=== PATIENT | female | born 1980 | race Caucasian/White ===

== ENCOUNTER → 2016-12-11 | Outpatient (REF) | payer BC, OTHER ==
[~2016-12-11] MED LIST: ACET-654 PO; ADVA230A INH; ALBU17IN INH; ALBU83IN INH; AMOX875T2 PO; AZIT250T3 PO; BUDE0.5S6 INH; FIOR1CAP PO; IBUPOTC PO; IPRA1SOL47 INH; IPRASOL4 INH; MONT10TA2 PO; MOTR200T44 PO; OMEP40CA2 PO; PRED10TA PO; PRED5TA PO; THEO30TASA PO; XOLA150S SC
[2016-12-11 03:05] LABS: BASO # 0.1 K/mm3 (0.0-0.2); BASO % 0.4 % (0.0-1.0); EOS # 0.7 K/mm3 (0.0-0.50); EOS % 4.3 % (0.0-3.0); LARGE UNSTAINED CELL # 0.2 K/mm3 (0.0-0.4); LARGE UNSTAINED CELL % 1.2 % (0.0-4.0); LYMPH # 3.4 K/mm3 (1.5-4.5); LYMPH % 20.2 % (24.0-44.0); MEAN CORPUSCULAR HEMOGLOBIN 28.7 pg (27.0-33.0); MEAN CORPUSCULAR HGB CONC 33.3 g/dl (32.0-36.5); MONO # 1.1 K/mm3 (0.0-0.8); MONO % 6.7 % (0.0-5.0); NEUTROPHILS # 10.7 K/mm3 (1.8-7.7); NEUTROPHILS % 67.2 % (36.0-66.0); PLATELET COUNT, AUTOMATED 360 k/mm3 (150-450); RED CELL DISTRIBUTION WIDTH 13.4 % (11.5-14.5)
[2016-12-11 08:24] LABS: ANION GAP 12 MEQ/L (8-16); BLOOD UREA NITROGEN 11 MG/DL (7-18); CALCIUM LEVEL 8.8 MG/DL (8.5-10.1); CARBON DIOXIDE LEVEL 25 MEQ/L (21-32); CHLORIDE LEVEL 103 MEQ/L (98-107); CREATININE FOR GFR 0.81 MG/DL (0.55-1.02); GLOMERULAR FILTRATION RATE > 60.0 (>60); GLUCOSE, FASTING 112 MG/DL (70-105); POTASSIUM SERUM 3.6 MEQ/L (3.5-5.1); SODIUM LEVEL 140 MEQ/L (136-145); THEOPHYLLINE LEVEL 20.4 UG/ML (10.0-20.0)
--- NOTE | 2016-12-11 08:43 | REP ---
Clinical: Preoperative assessment . Comparison: 10/11/2016 . Technique: PA and lateral. Findings: The mediastinum and cardiac silhouette are normal. The lung wu are clear and without acute consolidation, effusion, or pneumothorax. The skeletal structures are intact and normal. Impression: 1. No acute cardiopulmonary process. Signed by Real Velarde MD 12/11/2016 08:34 A
== END ==
LOC: M LAB 01:39
PROVIDERS: ATTEND Nurse Practitioner Family
DX: Z01.818 Encounter for other preprocedural examination (principal)

== ENCOUNTER → 2016-12-16 | Day surgery (SDC) | payer OTHER ==
[~2016-12-16] VITALS: Ht 165.1 cm; Wt 115.2 kg
[~2016-12-16] MED LIST changes: +ACETAMINOPHEN 325 MG TAB PO PRN; +ACETYLCHOLINE OPHTH SOLN 1% 2ML As Ordered ONE; +BALANCED SALT IRRIGATION SOL 500ML GLASS BOTTLE (FOR OR EYE COMPOUND) IR ONE; +BALANCED SALT IRRIGATION SOLUTION 500ML BAG (FOR OR EYE MACHINE) As Ordered ONE; +CEFUROXIME 1MG/0.1ML INTRACAMERAL INJ As Ordered ONE; +CEFUROXIME 1MG/0.1ML INTRACAMERAL INJ ICAM ONE; +CYCLOPENTOLATE 2% OPHTH SOLN OD ONE; +D5W/0.2% SODIUM CHLORIDE 250 ML IV SCH; +HEALON DUET (HEALON 10MG/ML 0.55ML & HEALON ENDOCOAT 30MG/ML 0.85ML) As Ordered ONE; +HEALON DUET (HEALON 10MG/ML 0.55ML & HEALON ENDOCOAT 30MG/ML 0.85ML) XX ONE; +KETOROLAC 0.5% OPHTH SOLN OD ONE; +LIDOCAINE 1% SDV 5 ML VIAL As Ordered ONE; +LIDOCAINE 1% SDV 5 ML VIAL XX ONE; +LIDOCAINE 4% INJ 5 ML AMP OU ONE; +MIDAZOLAM INJ 2 MG/2 ML VIAL (J2250) As Ordered ONE; +OFLOXACIN 0.3 % (OCUFLOX) OPTH SOL 5ML OD ONE; +PHENYLEPHRINE 2.5% OPHTH SOL 2ML OD ONE; +POVIDONE-IODINE 5% OPHTH PREP SOL 30ML As Ordered ONE; +PROPARACAINE 0.5% OPHTH SOL 15ML OD PRN; +TRIMETHOBENZAMIDE 300 MG CAP PO PRN; +TROPICAMIDE 1% OPHTH SOLN 2 ML OD ONE; +fentaNYL 100 MCG/2 ML INJECTION (J3010) As Ordered ONE
[2016-12-16 11:13] LABS: CONTROL LINE UCG INT CTR LINE PRESENT
[2016-12-16 12:30] VITALS: BP 124/62
--- NOTE | 2016-12-17 05:38 | RO ---
DATE OF PROCEDURE: 12/16/2016 PREPROCEDURE DIAGNOSIS: Age related posterior subscapular cataract, right eye. POSTPROCEDURE DIAGNOSIS: Age related posterior subscapular cataract, right eye. PROCEDURE: Phacoemulsification and posterior chamber intraocular lens implantation, right eye. The lens used was PCB00, 14.5 diopter. SURGEON: Clarisse Ga MD G[employer]ZARD SKIN REMOVER: ANESTHESIA: Topical with sedation. DESCRIPTION OF PROCEDURE: The patient was prepped and draped in the usual fashion. A lid speculum was placed between the lids. The eye was fixated. A stab incision was made to the anterior chamber, and 1% non-preserved lidocaine was instilled. Then, viscoelastic was instilled. The eye was re-fixated. A 2.75 mm sapphire keratome was used to make a clear corneal temporal limbal incision. Capsulorrhexis was begun with a 30-gauge bent needle and then carried out in a circular fashion with capsulorrhexis forceps. The lens was hydrodissected, and then the phacoemulsification unit was used to make a groove in the nucleus in two meridians. The nucleus was then cracked into four quadrants. Each quadrant was removed with the phacoemulsification unit. Any remaining cortex was removed with the irrigation and aspiration (I and A) unit. Capsular bag was refilled with viscoelastic. A posterior chamber intraocular lens was placed in the capsular bag without difficulty. Any remaining viscoelastic was removed with the I and A unit. The wound was hydrated, and Miochol and cefuroxime were instilled into the anterior chamber. The patient tolerated the procedure well and went to the recovery room in stable condition.
== END | disposition home or self-care (01) ==
LOC: M SDC 10:16
PROVIDERS: ATTEND Ophthalmology
DX: H25.041 Posterior subcapsular polar age-related cataract, right eye (principal); J45.909 Unspecified asthma, uncomplicated; K21.9 Gastro-esophageal reflux disease without esophagitis; M54.5 Low back pain; L30.9 Dermatitis, unspecified; R06.83 Snoring; R09.81 Nasal congestion; J30.2 Other seasonal allergic rhinitis; Z88.2 Allergy status to sulfonamides; Z91.09 Other allergy status, other than to drugs and biological substances; Z79.899 Other long term (current) drug therapy; Z79.52 Long term (current) use of systemic steroids; Z87.891 Personal history of nicotine dependence
CPT/HCPCS: 66984; 84703; J2250; J3010

== ENCOUNTER 2017-06-06 07:55 | Emergency (ER) | payer OTHER ==
[~2017-06-06] VITALS: Ht 165.1 cm; Wt 106.2 kg
[~2017-06-06 07:55] MED LIST changes: -ACET-654 PO; +ACET1TAB17 PO; -ACETAMINOPHEN 325 MG TAB PO PRN; -ACETYLCHOLINE OPHTH SOLN 1% 2ML As Ordered ONE; +AZIT-12 PO; -AZIT250T3 PO; -BALANCED SALT IRRIGATION SOL 500ML GLASS BOTTLE (FOR OR EYE COMPOUND) IR ONE; -BALANCED SALT IRRIGATION SOLUTION 500ML BAG (FOR OR EYE MACHINE) As Ordered ONE; -CEFUROXIME 1MG/0.1ML INTRACAMERAL INJ As Ordered ONE; -CEFUROXIME 1MG/0.1ML INTRACAMERAL INJ ICAM ONE; -CYCLOPENTOLATE 2% OPHTH SOLN OD ONE; -D5W/0.2% SODIUM CHLORIDE 250 ML IV SCH; -HEALON DUET (HEALON 10MG/ML 0.55ML & HEALON ENDOCOAT 30MG/ML 0.85ML) As Ordered ONE; -HEALON DUET (HEALON 10MG/ML 0.55ML & HEALON ENDOCOAT 30MG/ML 0.85ML) XX ONE; -KETOROLAC 0.5% OPHTH SOLN OD ONE; -LIDOCAINE 1% SDV 5 ML VIAL As Ordered ONE; -LIDOCAINE 1% SDV 5 ML VIAL XX ONE; -LIDOCAINE 4% INJ 5 ML AMP OU ONE; -MIDAZOLAM INJ 2 MG/2 ML VIAL (J2250) As Ordered ONE; -OFLOXACIN 0.3 % (OCUFLOX) OPTH SOL 5ML OD ONE; -PHENYLEPHRINE 2.5% OPHTH SOL 2ML OD ONE; -POVIDONE-IODINE 5% OPHTH PREP SOL 30ML As Ordered ONE; -PROPARACAINE 0.5% OPHTH SOL 15ML OD PRN; +THEO1TAB4 PO; -THEO30TASA PO; -TRIMETHOBENZAMIDE 300 MG CAP PO PRN; -TROPICAMIDE 1% OPHTH SOLN 2 ML OD ONE; -fentaNYL 100 MCG/2 ML INJECTION (J3010) As Ordered ONE
[2017-06-06] MEDS ORDERED: predniSONE 20 MG TAB PO ONE (08:45)
[2017-06-06] MEDS: IPRATROPIUM 0.5MG/ALBUTEROL 2.5MG INH SOL UD 3ML (DUONEB)(J7620) NEB SCH ×3 (08:57→09:25)
[2017-06-06] MEDS ORDERED: PRED20TA PO (09:59)
[2017-06-06 10:05] VITALS: BP 121/81
== END 2017-06-06 10:06 | disposition home or self-care (01) ==
LOC: M ED 07:55
DX: J45.901 Unspecified asthma with (acute) exacerbation (principal); F17.210 Nicotine dependence, cigarettes, uncomplicated; Z88.1 Allergy status to other antibiotic agents; Z88.2 Allergy status to sulfonamides; Z91.018 Allergy to other foods; Z79.899 Other long term (current) drug therapy

== ENCOUNTER 2017-06-14 13:32 | Inpatient (IN) | payer OTHER ==
[~2017-06-14] VITALS: Ht 165.1 cm; Wt 106.1 kg
[~2017-06-14 13:32] MED LIST changes: +PRED20TA PO
[2017-06-14] MEDS ORDERED: methylPREDNISolone INJ 125 MG/2 ML VIAL (J2930) IV ONE (14:30)
[2017-06-14] MEDS: IPRATROPIUM 0.5MG/ALBUTEROL 2.5MG INH SOL UD 3ML (DUONEB)(J7620) NEB SCH ×3 (14:40→15:12)
[2017-06-14 15:02] LABS: ABG BASE EXCESS 0.6 (-2.0-2.0); ABG HCO3 23.2 MEQ/L (22.0-26.0); ABG PARTIAL PRESSURE CO2 31.4 mmHg (35.0-45.0); ABG PARTIAL PRESSURE O2 70.1 mmHg (75.0-100.0); ABG TOTAL CO2 24.1 MEQ/L (22.0-29.0); ABG pH (ARTERIAL) 7.486 UNITS (7.350-7.450)
[2017-06-14 15:09] LABS: BASO # 0.1 K/mm3 (0.0-0.2); BASO % 0.4 % (0.0-1.0); EOS # 0.2 K/mm3 (0.0-0.50); EOS % 1.1 % (0.0-3.0); LARGE UNSTAINED CELL # 0.1 K/mm3 (0.0-0.4); LARGE UNSTAINED CELL % 0.6 % (0.0-4.0); LYMPH # 2.8 K/mm3 (1.5-4.5); LYMPH % 14.5 % (24.0-44.0); MEAN CORPUSCULAR HEMOGLOBIN 29.5 pg (27.0-33.0); MEAN CORPUSCULAR HGB CONC 33.5 g/dl (32.0-36.5); MEAN CORPUSCULAR VOLUME 88.1 fl (80.0-96.0); MONO # 1.1 K/mm3 (0.0-0.8); MONO % 5.6 % (0.0-5.0); NEUTROPHILS # 14.7 K/mm3 (1.8-7.7); NEUTROPHILS % 77.8 % (36.0-66.0); PLATELET COUNT, AUTOMATED 382 k/mm3 (150-450); RED CELL DISTRIBUTION WIDTH 14.6 % (11.5-14.5); WHITE BLOOD COUNT 18.9 K/mm3 (4.0-10.0)
[2017-06-14 15:34] LABS: CONTROL LINE HCG INT CTR LINE PRESENT
[2017-06-14 15:53] LABS: ALBUMIN 3.3 GM/DL (3.2-5.2); ALBUMIN/GLOBULIN RATIO 0.97 (1.00-1.93); ALKALINE PHOSPHATASE 96 U/L (45-117); ALT/SGPT 22 U/L (12-78); ANION GAP 10 MEQ/L (8-16); AST/SGOT 9 U/L (15-37); BILIRUBIN,DIRECT < 0.1 MG/DL (0.0-0.2); BILIRUBIN,TOTAL 0.3 MG/DL (0.2-1.0); BLOOD UREA NITROGEN 14 MG/DL (7-18); CALCIUM LEVEL 7.8 MG/DL (8.5-10.1); CARBON DIOXIDE LEVEL 26 MEQ/L (21-32); CHLORIDE LEVEL 108 MEQ/L (98-107); CREATININE FOR GFR 0.78 MG/DL (0.55-1.02); GLOMERULAR FILTRATION RATE > 60.0 (>60); GLUCOSE, FASTING 88 MG/DL (70-105); POTASSIUM SERUM 3.7 MEQ/L (3.5-5.1); SODIUM LEVEL 144 MEQ/L (136-145); TOTAL PROTEIN 6.7 GM/DL (6.4-8.2)
[2017-06-14] MEDS ORDERED: ISOVUE-370 76% 100ML VIAL (Q9967) As Ordered ONE (16:07)
--- NOTE | 2017-06-14 17:31 | REP ---
CT pulmonary angiogram: With IV contrast: History: Dyspnea. Comparison noncontrast chest CT study is 08/25/2016. Contrast dose: 75 cc's of Isovue [address] technique: Helical scanning is acquired and overlapping 1.5 mm and contiguous 3 mm axial images are reformatted. In addition, a 3-D work station is deployed to generate thick slab maximum intensity projection images in sagittal and coronal imaging projections. CT pulmonary angiographic findings: There is good opacification of the pulmonary arterial tree. There is no CT evidence of pulmonary embolism. The thoracic aorta enhances homogeneously and is normal in course and caliber. A small sliding-type hiatal hernia is noted. There is an accessory splenule in the left upper quadrant. Clips are noted in the gallbladder fossa. No hilar or mediastinal mass or adenopathy is observed. No pleural or pericardial effusion is seen. Maximal intensity projection images show no evidence of vessel cutoff or filling defect to suggest pulmonary embolus. Lung window settings demonstrate numerous patchy bilateral ground-glass alveolar opacities throughout the lung wu. There is some plate-like atelectasis in the lingula and in the right middle lobe. No pleural or pericardial effusion is seen. No bony destructive lesion is appreciated. Impression: 1. No CT evidence of pulmonary embolus. 2. Fairly extensive bilateral patchy disbursed ground-glass opacities and alveolar infiltrates. This has a broad differential. Opportunistic infection, hypersensitivity pneumonitis, eosinophilic pneumonia, and chronic interstitial disease. Signed by Breezy Huber MD 06/15/2017 09:52 A
[2017-06-14] MEDS ORDERED: ACETAMINOPHEN TAB 650MG DOSE (2X325MG) PO PRN (18:15)
[2017-06-14] MEDS ORDERED: ALBUTEROL SULFATE 2.5 MG/0.5 ML INH NEB SOLN INH PRN (18:15)
[2017-06-14] MEDS ORDERED: ONDANSETRON 4MG/2ML VIAL (J2405) IV PRN (18:15)
[2017-06-14] MEDS ORDERED: TUMS500C PO (18:21)
[2017-06-14] MEDS ORDERED: IBUP1TAB6 PO (18:21)
[2017-06-14] MEDS ORDERED: PRED20TA PO (18:23)
[2017-06-14 19:07] LABS: IMMUNOGLOBULIN G 686 MG/DL (681-1648); IMMUNOGLOBULIN M 60.5 MG/DL (40-230)
--- NOTE | 2017-06-14 19:45 | ECGEPIP ---
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
[2017-06-14 20:07] VITALS: BP 138/74
[2017-06-14] MEDS: ALBUTEROL SULFATE 2.5 MG/0.5 ML INH NEB SOLN INH SCH ×2 (20:33→22:58)
[2017-06-14] MEDS: methylPREDNISolone INJ 125 MG/2 ML VIAL (J2930) IV SCH (20:35)
[2017-06-14] MEDS: AZITHROMYCIN INJ 500 MG, VIAL MATE ADAPTER 1 EACH in D5W 250 ML IV SCH (20:36)
[2017-06-14] MEDS ORDERED: SLF 3 ML SYR IV PRN (20:45)
[2017-06-14] MEDS: NYSTATIN 500,000 U/5 ML SUSP UDC PO SCH (21:56)
[2017-06-14] MEDS: cefTRIAXone SOD 2 GM in D5W MINI-BAG PLUS 50 ML IV SCH (21:56)
[2017-06-14] MEDS: SLF 3 ML SYR IV SCH (21:56)
[2017-06-14 23:59] VITALS: BP 140/75
[2017-06-15] VITALS (7 sets, daily range): BP systolic 113–164; BP diastolic 63–86; O2SAT 96
[2017-06-15] MEDS: ALBUTEROL SULFATE 2.5 MG/0.5 ML INH NEB SOLN INH SCH ×6 (03:26→23:17)
[2017-06-15] MEDS: SLF 3 ML SYR IV SCH ×3 (03:48→20:09)
[2017-06-15] MEDS: methylPREDNISolone INJ 125 MG/2 ML VIAL (J2930) IV SCH ×2 (03:48→09:41)
[2017-06-15 05:35] LABS: MEAN CORPUSCULAR HEMOGLOBIN 29.4 pg (27.0-33.0); MEAN CORPUSCULAR HGB CONC 33.2 g/dl (32.0-36.5); MEAN CORPUSCULAR VOLUME 88.4 fl (80.0-96.0); RED CELL DISTRIBUTION WIDTH 14.2 % (11.5-14.5); WHITE BLOOD COUNT 12.6 K/mm3 (4.0-10.0)
[2017-06-15 05:50] LABS: ANION GAP 9 MEQ/L (8-16); BLOOD UREA NITROGEN 14 MG/DL (7-18); CALCIUM LEVEL 7.8 MG/DL (8.5-10.1); CARBON DIOXIDE LEVEL 24 MEQ/L (21-32); CHLORIDE LEVEL 107 MEQ/L (98-107); CREATININE FOR GFR 0.75 MG/DL (0.55-1.02); GLOMERULAR FILTRATION RATE > 60.0 (>60); GLUCOSE, FASTING 179 MG/DL (70-105); MAGNESIUM LEVEL 2.7 MG/DL (1.8-2.4); POTASSIUM SERUM 4.3 MEQ/L (3.5-5.1); SODIUM LEVEL 140 MEQ/L (136-145)
[2017-06-15] MEDS: ENOXAPARIN 40 MG/0.4 ML SYRINGE (J1650) SC SCH (09:32)
[2017-06-15] MEDS: NYSTATIN 500,000 U/5 ML SUSP UDC PO SCH ×4 (09:41→20:09)
--- NOTE | 2017-06-15 15:53 | HPE ---
DATE OF ADMISSION: 06/14/2017 HISTORY OF PRESENT ILLNESS: Ms. Sanchez is a 36-year-old female presenting to the emergency department (ED) for shortness of breath, coughing, and wheezing that has persisted for 1-1/2 weeks. Previously has never had such an episode. Patient denies recent travel history, sick contacts, and changes in medications. Patient has a history of asthma for which she is on home medication of Pulmicort , Advair, DuoNeb, and Ventolin. Patient states that she came to this ED previously and was diagnosed with bronchitis and was put on a tapered steroid dose, however last Wednesday she was not feeling well and could not breathe and went to [facility], who gave her 1 gram of Rocephin and Solu-Medrol and wanted to admit her, but she left due to having a child at home. She was not feeling better by this morning and normally sees Liliana, a nurse practitioner working with Dr. Gupta in pulmonology, and was told to come into the ED to get evaluated. Associated symptoms along with shortness of breath, coughing and wheezing are mild nausea and mid-chest pain that is constant and worsens with inspiration. Denies other symptoms such as fever, body aches, chills, rhinorrhea. Patient has a long history of smoking a half a pack a day for 15 years and quit 2 years ago. Patient states that she has been tested for obstructive sleep apnea and was negative. Patient is in room with . Patient was administered 125 mg of Solu-Medrol and a DuoNeb treatment in the ED. REVIEW OF SYSTEMS: CONSTITUTIONAL: Denies fever, chills, malaise, night sweats, fatigue, weight changes, lethargy. EYES: Denies pain, vision changes, redness. EARS/NOSE/THROAT (ENT): Denies headache, ear pain, dysphagia, congestion, postnasal drip, sore throat. SKIN: Positive for eczematous rash. Denies easy bleeding, bruising. PULMONARY: Positive for dyspnea, cough, pleuritic chest pain, wheezing. CARDIOVASCULAR: Negative for chest pain, palpitations, orthopnea, edema, lightheadedness. GASTROINTESTINAL (GI): Positive nausea. Negative vomiting, abdominal pain, diarrhea, constipation. HEMATOLOGIC: Denies easy bleeding and bruising, enlarged lymph nodes. ENDOCRINE: Denies polydipsia or polyphagia. MUSCULOSKELETAL (MSK): Denies joint pain, swelling, muscle pain and muscle spasms. NEUROLOGIC: Denies weakness, numbness, incoordination, confusion. MEDICAL HISTORY: 1. Migraines. 2. Bilateral cataracts. 3. Eczema. 4. Asthma. 5. Cholecystitis. 6. Gastroesophageal reflux disease (GERD). HOME MEDICATIONS: - Pulmicort 0.5 mg twice a day nebulizer - Advair 230 twice a day inhaler - DuoNeb every 4 hours as needed - omeprazole 40 mg daily - Motrin as needed for headache - Ventolin HFA - Xolair injection 300 mg every other week FAMILY HISTORY: Diabetes and heart disease on maternal and paternal side. ALLERGIES: SULFA, with reaction of hives and rash. SURGICAL HISTORY: 1. Cholecystectomy. 2. Bilateral cataract removal. SOCIAL HISTORY: Denies illicit substance abuse. 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 Previously smoked half a pack per day since the age of 21, recently quit 2 years ago. Occasional alcohol use. PHYSICAL EXAMINATION: VITAL SIGNS: Temperature 97.2, pulse 102, respiratory rate 20, blood pressure 136/76, pulse oximetry 94% on room air. GENERAL: Alert and oriented times three, cooperative, in no acute distress. EYE EXAM: Pupils equal, round, and reactive to light and accommodation. Extraocular motion intact. Anicteric sclerae. HEAD and ENT: Atraumatic, normocephalic. Mucous membranes moist and pink. Normal pharynx. Tongue midline. No pharyngeal edema. NECK EXAM: Supple. No jugular venous distention (JVD) or thyromegaly or lymphadenopathy. CARDIOVASCULAR: Difficult to assess due to loud lung sounds, however few heart sounds do appear regular rhythm and tachycardic. No audible murmur. RESPIRATORY: Bilateral and diffuse wheezing. Expiratory phase prolonged and longer than inspiratory. Rales bilaterally in lower lobes. ABDOMEN EXAM: Normal bowel sounds. Soft, nontender, nondistended. EXTREMITIES: No clubbing, cyanosis, or edema. +2 dorsalis pedis pulses bilaterally. No tenderness or swelling. SKIN EXAM: Visible eczematous rashes bilaterally on shins. NEUROLOGIC EXAM: Normal speech, normal tone, sensation intact. Cranial nerves III-XII intact. PSYCHIATRIC EXAM: Appropriate mood and affect, oriented times three. LABORATORY DATA: White blood count 18.9, hemoglobin and hematocrit 14.1 and 42.2, respectively, platelets 382. Chemistry panel: Sodium 144, potassium 3.7, chloride 108, CO2 26, BUN 14, creatinine 0.78, calcium 7.8. Blood gas: ABG pH 7.49, pCO2 31.4, pO2 70.1. Microbiology: Blood culture pending. IMAGING: CT angiography upon admission showed no pulmonary embolism (PE) and fairly extensive bilateral patchy dispersed ground glass opacities and alveolar infiltrates with a differential of opportunistic infection, hypersensitivity pneumonitis, eosinophilic pneumonia, and chronic interstitial disease. ASSESSMENT AND PLAN: This is a 36-year-old female presenting for dyspnea, admitted to the medical floor. 1. Acute asthma exacerbation. Continue home medications of Pulmicort, Advair, DuoNeb, and Ventolin. Start Solumedrol. 2. Leukocytosis. White blood count is 18.9, likely a systemic inflammatory reaction from her asthma since patient is afebrile upon presentation with a temperature of 97.2. Attributable to partially-treated symptoms and steroid use. Continue prednisone and start antibiotics. Blood cultures and serology pending. Sputum culture and respiratory panel pending. 3. Respiratory alkalosis with an arterial blood gas (ABG) pH of 7.49 and with a CO2 of 31.4. Due to patient's dyspnea and CO2 retention. Continue to monitor. Pulmonology has been consulted. Appreciate their input. 4. Gastroesophageal reflux disease (GERD). Protonix 40 mg. 5. DVT prophylaxis. Lovenox 40mg. I have both independently examined this patient as well as reviewed the dictated note. I have discussed in detail with the resident the findings and plan of treatment as documented in the residents note. I will continue to follow the patient and offer further guidance to the patients care as necessary during this hospital stay. JASS
[2017-06-15] MEDS: methylPREDNISolone INJ 40 MG/1 ML VIAL (J2920) IV SCH (18:06)
[2017-06-15] MEDS: cefTRIAXone SOD 2 GM in D5W MINI-BAG PLUS 50 ML IV SCH (20:09)
[2017-06-15] MEDS ORDERED: MONTELUKAST 10 MG TAB PO SCH (21:00)
[2017-06-15] MEDS: ADVAIR HFA 230/21MCG INHALER INH SCH (21:11)
[2017-06-15] MEDS: TIOTROPIUM INHALER/CAPSULE (SPIRIVA) INH SCH (21:12)
[2017-06-15] MEDS: BUDESONIDE 0.5 MG/2 ML INHALATION SUSPENSION INH SCH (21:13)
[2017-06-15] MEDS: AZITHROMYCIN INJ 500 MG, VIAL MATE ADAPTER 1 EACH in D5W 250 ML IV SCH (21:32)
--- NOTE | 2017-06-15 22:13 | IPNPDOC ---
Subjective Date Seen The patient was seen on 06/15/17. Subjective Chief Complaint/HPI The patient is a 36-year-old female admitted with a reason for visit of Exacerbation Of Asthma. Pt states she feels better today and herself took off her nasal cannula this morning because she felt well without it. States her breathing is improving and dry cough and wheezing are still present, but also improving. No acute complaints or events overnight. General: Reports: Normal Appetite, Denies: Chills, Malaise Constitutional: Denies: Chills, Fever, Malaise, Night Sweats, Weakness Eyes: Denies: Pain, Vision change ENT: Denies: Head Aches, Dysphagia Pulmonary: Reports: Cough, Denies: Dyspnea, Pleuritic Chest Pain Cardiovascular: Denies: Chest Pain, Palpitations, Orthopnea, Edema, Lt Headedness Gastrointestinal: Denies: Nausea, Vomiting, Abdominal Pain, Diarrhea, Constipation Genitourinary: Denies: Dysuria, Frequency Hematologic: Denies: Bruising, Bleeding Excessively Neurological: Denies: Weakness, Numbness, Confusion Psych: Reports: Mood Normal Objective Physical Examination General Exam: Positive: Alert, Cooperative, No Acute Distress Eye Exam: Positive: Conjunctiva & lids normal, EOMI, Sclera icteric ENT Exam: Positive: Atraumatic, Mucous membr. moist/pink, Pharynx Normal, Tongue Midline Neck Exam: Positive: Supple, Negative: JVD, thyromegaly, Lymphadenopathy Chest Exam: Positive: Wheezing (bilateral wheezing, expiratory>inspiratory phase, increased AP diameter) Heart Exam: Positive: Rate Normal, Regular Rhythm, Negative: Murmurs, Rubs Abdomen Exam: Positive: Normal bowel sounds, Soft, Negative: Tenderness Extremity Exam: Positive: Normal pulses, Negative: Clubbing, Cyanosis, Edema, Tenderness, Swelling Skin Exam: Positive: Rash (eczematous rashes on bilateral shins and left toes) Neuro Exam: Positive: Normal Speech, Strength at 5/5 X4 ext, Normal Tone Psych Exam: Positive: Mental status NL, Mood NL, Oriented x 3 Assessment /Plan Assessment 1. Acute asthma exacerbation. Continue inhaler treatments. Decreased Solumedrol from 60mg to 40mg IV. 2. Leukocytosis. White blood count is normalizing from 18.9 yesterday to 12.3 today. Likely a systemic inflammatory reaction from her asthma since patient is afebrile upon presentation and since admission with a Tmax of 98.6, and continues to be afebrile. Attributable to partially-treated symptoms and steroid use. Continue Solumedrol and antibiotics (Ceftraixone 2g + Azithromycin 500mg). Blood cultures show no growth at 24 hours. Serology pending. Sputum culture and respiratory panel pending. 3. Respiratory alkalosis with an arterial blood gas (ABG) pH of 7.49 and with a CO2 of 31.4. Due to patient's dyspnea and CO2 retention. Continue to monitor. Pulmonology has been consulted. Appreciate their input. 4. Gastroesophageal reflux disease (GERD). Protonix 40 mg. 5. DVT prophylaxis. Lovenox 40mg. My preceptor for this patient encounter was Dr. Booker Wallis. The preceptor was physically present in the building during the encounter and was fully available Plan/VTE VTE Prophylaxis Ordered?: Yes VS, I&O, 24H, Fishbone Vital Signs/I&O Vital Signs Date Time Temp Pulse Resp B/P (MAP) Pulse Ox O2 Delivery O2 Flow Rate FiO2 06/15/17 07:24 96 Nasal Cannula 2.0 06/15/17 04:00 96.4 82 18 113/68 (83) I&O- Last 24 Hours up to 6 AM 06/15/17 06:00 Intake Total 1260 ml Output Total 1200 ml Balance 60 ml Laboratory Data 24H LABS Laboratory Tests 2 06/14/17 14:51: Blood Gas Bicarbonate Standard 25.0, Arterial Blood pH 7.486H, Arterial Blood Partial Pressure CO2 31.4L, Arterial Blood Partial Pressure O2 70.1L, Arterial Blood Total CO2 24.1, Arterial Blood HCO3 23.2, Arterial Blood Base Excess 0.6, Arterial Blood Oxygen Saturation 94.8L 06/14/17 14:56: White Blood Count 18.9H, Red Blood Count 4.79, Hemoglobin 14.1, Hematocrit 42.2 , Mean Corpuscular Volume 88.1, Mean Corpuscular Hemoglobin 29.5, Mean Corpuscular Hemoglobin Concent 33.5, Red Cell Distribution Width 14.6H, Platelet Count 382, Neutrophils (%) (Auto) 77.8H, Lymphocytes (%) (Auto) 14.5L, Monocytes (%) (Auto) 5.6H, Eosinophils (%) (Auto) 1.1, Basophils (%) (Auto) 0.4 , Neutrophils # (Auto) 14.7H, Lymphocytes # (Auto) 2.8, Monocytes # (Auto) 1.1H , Eosinophils # (Auto) 0.2, Basophils # (Auto) 0.1, Large Unclassified Cells % 0.6, Large Unclassified Cells # 0.1, Anion Gap 10, Glomerular Filtration Rate > 60.0, Lactic Acid Level 1.2, Calcium Level 7.8L, Aspartate Amino Transf (AST/ SGOT) 9L, Alanine Aminotransferase (ALT/SGPT) 22, Alkaline Phosphatase 96, Total Bilirubin 0.3, Direct Bilirubin < 0.1, B-Type Natriuretic Peptide 10.4, Total Protein 6.7, Albumin 3.3, Albumin/Globulin Ratio 0.97L, Thyroid Stimulating Hormone (TSH) 0.848, Human Chorionic Gonadotropin, Qual NEGATIVE, Immunoglobulin G (Chem) 686, Immunoglobulin A 198.0, Immunoglobulin M 60.5 06/15/17 05:15: Anion Gap 9, Glomerular Filtration Rate > 60.0, Calcium Level 7.8L, Blood Urea Nitrogen 14, Creatinine 0.75, Sodium Level 140, Potassium Level 4.3, Chloride Level 107, Carbon Dioxide Level 24, Magnesium Level 2.7H CBC/BMP Laboratory Tests 06/14/17 14:56 Red Blood Count 4.79, Mean Corpuscular Volume 88.1, Mean Corpuscular Hemoglobin 29.5, Mean Corpuscular Hemoglobin Concent 33.5, Red Cell Distribution Width 14.6 H, Neutrophils (%) (Auto) 77.8 H, Lymphocytes (%) (Auto) 14.5 L, Monocytes (%) (Auto) 5.6 H, Eosinophils (%) (Auto) 1.1, Basophils (%) (Auto) 0.4, Neutrophils # (Auto) 14.7 H, Lymphocytes # (Auto) 2.8, Monocytes # (Auto) 1.1 H , Eosinophils # (Auto) 0.2, Basophils # (Auto) 0.1 06/15/17 05:15 Red Blood Count 4.56, Mean Corpuscular Volume 88.4, Mean Corpuscular Hemoglobin 29.4, Mean Corpuscular Hemoglobin Concent 33.2, Red Cell Distribution Width 14.2 , Calcium Level 7.8 L Microbiology Microbiology 06/14/17 Blood Culture, Received Pending 06/14/17 Blood Culture, Received Pending GME ATTESTATION GME ATTESTATION My preceptor for this patient encounter was physically present in the building during the encounter and was fully available. As needed, all aspects of the patient interview, examination, medical decision making process, and medical care plan development were reviewed and approved by the preceptor. Preceptor is aware and concurs with the plan as stated in the body of this note and will attest to such by his/her cosignature. JAZMINE MADRID DO Jun 15, 2017 08:24
[2017-06-16] MEDS: ALBUTEROL SULFATE 2.5 MG/0.5 ML INH NEB SOLN INH SCH ×3 (02:56→10:51)
[2017-06-16 05:46] LABS: MEAN CORPUSCULAR HEMOGLOBIN 29.6 pg (27.0-33.0); MEAN CORPUSCULAR HGB CONC 33.3 g/dl (32.0-36.5); MEAN CORPUSCULAR VOLUME 88.9 fl (80.0-96.0); RED CELL DISTRIBUTION WIDTH 14.1 % (11.5-14.5); WHITE BLOOD COUNT 18.2 K/mm3 (4.0-10.0)
[2017-06-16 06:00] VITALS: BP 132/80
[2017-06-16] MEDS: SLF 3 ML SYR IV SCH (06:00)
[2017-06-16 06:04] LABS: ANION GAP 7 MEQ/L (8-16); BLOOD UREA NITROGEN 19 MG/DL (7-18); CALCIUM LEVEL 7.9 MG/DL (8.5-10.1); CARBON DIOXIDE LEVEL 25 MEQ/L (21-32); CHLORIDE LEVEL 109 MEQ/L (98-107); CREATININE FOR GFR 0.75 MG/DL (0.55-1.02); GLOMERULAR FILTRATION RATE > 60.0 (>60); GLUCOSE, FASTING 184 MG/DL (70-105); MAGNESIUM LEVEL 2.7 MG/DL (1.8-2.4); POTASSIUM SERUM 4.3 MEQ/L (3.5-5.1); SODIUM LEVEL 141 MEQ/L (136-145)
[2017-06-16] MEDS: BUDESONIDE 0.5 MG/2 ML INHALATION SUSPENSION INH SCH (08:00)
[2017-06-16] MEDS: ADVAIR HFA 230/21MCG INHALER INH SCH (08:03)
[2017-06-16] MEDS: TIOTROPIUM INHALER/CAPSULE (SPIRIVA) INH SCH (08:06)
[2017-06-16] MEDS: NYSTATIN 500,000 U/5 ML SUSP UDC PO SCH ×2 (10:14→12:40)
[2017-06-16] MEDS: ENOXAPARIN 40 MG/0.4 ML SYRINGE (J1650) SC SCH (10:14)
[2017-06-16] MEDS: methylPREDNISolone INJ 40 MG/1 ML VIAL (J2920) IV SCH ×2 (10:14)
[2017-06-16] MEDS: IBUPROFEN 400 MG TAB PO PRN ×2 (10:27)
--- NOTE | 2017-06-16 11:32 | CR ---
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 Dr. Gupta was consulted because of an abnormal CT scan on 06/14/2017, which showed an extensive bilateral patchy ground glass opacity and alveolar infiltrate. The patient's history of present illness was obtained at bedside. The patient was looking uncomfortable after conversing for a long period of time. 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 The patient stated that when she walked to her car that she took her pulse oximetry and it was at 84% and she was feeling very, very weak. The patient states that she went to the emergency room immediately here at [facility] on 06/06/2017 and she was diagnosed with bronchiolitis and was given a steroid taper of 60 mg to 40 mg to 20 mg for 12 days. The patient stated that she had relief for the first day or the prednisone taper and since then she noticed that she felt progressively worse. The patient states that she returned to the emergency room near her home town on 06/11/2017. At this visit, she was given one dose of Rocephin and one dose of Solu-Medrol 250 mg. The patient states that she returned the next two days on Wednesday and Wednesday for her second and third dose of 100 mg of Solu-Medrol. She stated that after her first dose of 250 mg of Solu-Medrol that she noticed an improvement of her symptoms, but progressively it has gotten worse on Wednesday and Wednesday. She stated that at the same emergency room visit that she had gotten a chest x-ray, which was negative for any acute findings. The patient admitted that her dry cough has progressed to a productive cough since this whole episode has started and it has currently improved since her admission here at [facility]. The patient denies having any chest pain, fevers, chills, nausea, vomiting, diarrhea, weight loss or weight gain, cold or heat intolerance. The patient does admit to having an allergy to cat and having one at home. She does state that she is currently looking for a new home for her cat. The patient states that she previously used to be on steroids, at least two to three times a year in the past. The patient states that she gets her pulmonary followup with Dr. Lester and gets Xolair shots. She admits that her last dose of Xolair was at the end of April. The patient states that she used to also get allergy shots at the age of 10 and was previously on Singulair and theophylline this past year. She stated that Theophylline was stopped because it was giving her "a funny feeling in her stomach," and does not remember why she stopped the Singulair. After reviewing her outpatient notes, the patient used to have an FEV1 of 72% in August 2016, which dropped down to 68% in November 2016. PAST MEDICAL HISTORY: 1. Asthma. 2. Gastroesophageal reflux disease (GERD). 3. Migraines. 4. Hypertension. SURGICAL HISTORY: 1. Cholecystectomy on 08/05/2010. SOCIAL HISTORY: Former smoker, she used to smoke a half of a pack per day for 13 years. She quit two years ago in 2014. She admits to social alcohol use. Denies any drug use. She is currently with one child, who also has asthma and she is currently on Asmanex. She has two dogs and one cat as a pet. FAMILY HISTORY: Mother with rheumatoid arthritis and history of transient ischemic attacks in her 40s. Father with no known medical problems. Parents are healthy. ALLERGIES: SULPHUR and environmental allergies. MEDICATIONS: - albuterol four puffs when necessary - DuoNeb every 4 hours when necessary - Prilosec 40 mg - Pulmicort 0.5 mg per 2 mL - Advair - Motrin as needed - Flonase allergy relief 50 mg once per day - Xolair 300 mg every 2 weeks ROS: Gen: No weight loss, fever, or chills. Heent: no pharyngitis, dysphagia, or epistaxis, no nasal polyps. Card: No angina, orthopnea or PND. No symptoms of claudication. Pulm: as per HPI GI: no nausea currently. no diarrhea or blood in stool : no bruning or pain with urination, no increased frequency or flank pain Endo: No polyuria or polydipsia. No hot or cold intolerance. Neuro: no siezure or headache. no tremor Skin: no rash or juandice Sleep: no excessive daytime fatigue or morning headahes Psych: no depression or suicidal ideation, no anxiety Allergy/immunology: no known immunodeficiency, environmental allergies as mentioned above. VITAL SIGNS: Temperature 96.8, pulse 81 and regular, respiratory rate 20, blood pressure 131/72 (91). Pulse oximetry of 92% on room air. PHYSICAL EXAMINATION: GENERAL: The patient was slightly uncomfortable but in no acute distress. Shortness of breath was was obvious during the exam, which you can appreciate a slight wheeze during conversations. HEENT: sclera clear an anicteric, mmm without lesions, tongue midline, no thrush. oropharynx without erythema or exudate. Neck: supple no tracheal deviation, no mass or thyromegaly Card: the patient's heart was tachycardic but regular rhythm. No murmurs or gallops were appreciated. No jugular venous pressure was noted. The patient had good circulation to all the extremities, fingers and in legs and good perfusion. [place] digits. LUNGS: Bilateral inspiratory and expiratory wheezes were appreciated in the upper and lower lobes, posteriorly and anteriorly. AP diameter was normal. No egophony. No abnormal percussions were appreciated. Abd: soft, NT, ND, normoactive bowel sounds. No hepatosplenomegaly. EXTREMITIES: No cyanosis, clubbing or edema. Skin: Eczema was noted on the left metatarsophalangeal joint. INPATIENT MEDICATIONS: - methylprednisolone 60 mg every 6 hours IV was given one time this morning at 9:41 a.m. The patient has an upcoming dose of 40 mg every 8 hours IV of methylprednisolone coming up. The patient denies taking Lovenox. She is currently on azithromycin 500 mg IV, nystatin 5 mL four times a day by mouth, albuterol 2.5 every 4 hours, and Zofran 4 mg IV. LABORATORIES: From this morning: WBC was 12.6, hemoglobin was 13.4, hematocrit of 40.3, platelets of 399. Sodium of 144, potassium 4.3, chloride of 107, BUN of 14, creatinine of 0.75, and glucose of 179. Immunoglobulin A was 198, immunoglobulin M was 60.5. Blood cultures are still negative the past [address] on 06/14/2017 showed fairly extensive bilateral patchy dispersed ground glass opacity and alveolar infiltrate. ASSESSMENT: 1. Abnormal chest CT, ground glass appearance bilaterally in the lungs. Differential diagnosis: Asthma with air trapping, cryptogenic organizing pneumonitis, viral pneumonia, churg shrug vasculitis, hypersensitivity pneumonitis and lupus. To rule these out, we have done laboratories on anti double stranded DNA antibodies, anti neutrophil cytoplasmic antibodies, antinuclear antibodies, hypersensitivity pneumonitis, immunoglobulin E levels. My ultimate suspicion is that this is asthma with air trapping. 2. Moderate persistent asthma. The patient is to start nebulizer Pulmicort 0.5 mg, Advair inhaled and Spiriva one inhalation daily. The patient is to restart Singulair 10 mg by mouth and also start a long steroid taper. The patient will start with 40 mg for one week, then 30 mg for one week, then 20 mg for one week and 10 mg for one week, followed by 5 mg. The patient will followup as an outpatient with pulmonary to make sure improvement in ground glass appearance or resolution of this with a repeat chest CT. Educated the patient on limited exposure to allergens, such as her cats. My preceptor for this patient encounter was Dr. Gupta. The preceptor was physically present in the room during the encounter and was fully available. As needed, all aspects of the patient interview, examination, medical decision making process, and medical care plan development were reviewed and approved by the preceptor. The preceptor is aware and concurs with the plan as stated in the body of this note and will attest to such by her cosignature. I, Yovany Gupta, performed an independent history and physical.I agrre with the assessment and plan as outlined above. edited: 06/18/2017 0724 moises REGAN
[2017-06-16] MEDS ORDERED: MONT10TA2 PO (12:23)
[2017-06-16] MEDS ORDERED: SPIR1CAP INH (12:23)
[2017-06-16] MEDS ORDERED: PRED10TA2 PO (12:23)
--- NOTE | 2017-06-16 15:18 | DS.PDOC ---
Discharge Summary General Date of Admission Jun 14, 2017 at 18:15 Date of Discharge 06/16/17 Specialist/Consultants Involve: SABRINA ANN Discharge Summary PROCEDURES PERFORMED DURING STAY: None. ADMITTING DIAGNOSES: 1. .Asthma Exacerbation 2. .Abnormal CTA Chest DISCHARGE DIAGNOSES: 1. .Asthma Exacerbation 2. .Abnormal CTA Chest COMPLICATIONS/CHIEF COMPLAINT: Exacerbation Of Asthma. HISTORY OF PRESENT ILLNESS: . 36-year-old female with past medical history of GERD, migraines, hypertension, and moderate persistent asthma presents to the ER with a chief complaint of shortness of breath. The patient was recently seen in the ER on 06/05/17 for shortness of breath and was discharged with a tapering dose of prednisone. However, the patient states that the prednisone taper did not help with her respiratory issues as she felt progressively worse. The patient returned to the ER on 06/13 for further evaluation and management. The patient states that she was having increased wheezing, and a productive cough of white sputum over the previous one plus week that did not resolve with the prescribed prednisone taper. The patient denied any complaints of fevers, chills, nausea, vomiting, chest pain, palpitations, diarrhea, or any other acute complaints. The patient was was admitted to the hospitalist service for further evaluation and management. During hospitalization, a CT angiogram of the chest was obtained which revealed fairly extensive bilateral patchy disburse groundglass opacities and alveolar infiltrates suggestive of a possible broad differential opportunistic infection , hypersensitivity pneumonitis, eosinophilic pneumonia, and chronic interstitial disease. Pulmonary was consulted for further evaluation, and recommended continuing the patient's Pulmicort, Advair, and adding Singulair plus Spiriva to the patient's medical regimen. In addition, the patient was given IV steroids here in the hospital, and her respiratory status subsequently improved over the next 48 hours. The patient will be sent home on a tapering dose of prednisone which includes 50 mg of prednisone for 5 days, 40 mg for 5 days, 30 mg for 5 days, 20 mg for 5 days, 10 mg for 5 days, and then to continue 5 mg daily until she is seen outpatient by pulmonary. In addition, the patient did have laboratory studies done which included an autoimmune disease, hypersensitivity pneumonitis, and IgE level workup. The patient has been advised to follow-up with her outpatient terrazzo worker apprentice and primary care physician with the aforementioned studies. At this time, the patient states that she is feeling much better and is eager to return home. I've advised the patient to continue her medical regimen as prescribed above, and to follow-up with her PCP and terrazzo worker apprentice within one and 2-4 weeks respectively. The patient is advised to return to the ER for any acute emergencies. DISCHARGE MEDICATIONS: Please see below. ALLERGIES: Please see below. PHYSICAL EXAMINATION ON DISCHARGE: VITAL SIGNS: Please see below. GENERAL: Awake, alert, oriented HEENT: Normocephalic, atraumatic NECK: No JVD CARDIOVASCULAR EXAMINATION: Normal rate, normal rhythm RESPIRATORY EXAMINATION: Faint expiratory wheeze noted on expiration, improved ABDOMINAL EXAMINATION: Soft, nontender, nondistended EXTREMITIES: No swelling, no tenderness LABORATORY DATA: Please see below. IMAGING: CT pulmonary angiogram: With IV contrast: History: Dyspnea. Comparison noncontrast chest CT study is 08/25/2016. Contrast dose: 75 cc's of Isovue [address] technique: Helical scanning is acquired and overlapping 1.5 mm and contiguous 3 mm axial images are reformatted. In addition, a 3-D work station is deployed to generate thick slab maximum intensity projection images in sagittal and coronal imaging projections. CT pulmonary angiographic findings: There is good opacification of the pulmonary arterial tree. There is no CT evidence of pulmonary embolism. The thoracic aorta enhances homogeneously and is normal in course and caliber. A small sliding-type hiatal hernia is noted. There is an accessory splenule in the left upper quadrant. Clips are noted in the gallbladder fossa. No hilar or mediastinal mass or adenopathy is observed. No pleural or pericardial effusion is seen. Maximal intensity projection images show no evidence of vessel cutoff or filling defect to suggest pulmonary embolus. Lung window settings demonstrate numerous patchy bilateral ground-glass alveolar opacities throughout the lung wu. There is some plate-like atelectasis in the lingula and in the right middle lobe. No pleural or pericardial effusion is seen. No bony destructive lesion is appreciated. Impression: 1. No CT evidence of pulmonary embolus. 2. Fairly extensive bilateral patchy disbursed ground-glass opacities and alveolar infiltrates. This has a broad differential. Opportunistic infection, hypersensitivity pneumonitis, eosinophilic pneumonia, and chronic interstitial disease. PROGNOSIS: Likely stable ACTIVITY: As tolerated. DIET: . Regular diet DISCHARGE PLAN: DISPOSITION: Home, Self-Care. DISCHARGE INSTRUCTIONS: 1. . Follow-up with primary care physician within one week 2. . Follow-up with outpatient pulmonary within 2-4 weeks 3. . Adhere to medical regimen as prescribed ITEMS TO FOLLOWUP ON ON OUTPATIENT: 1. . Return to the ER for any acute emergencies DISCHARGE CONDITION: Stable. TIME SPENT ON DISCHARGE: Greater than 30 minutes. Vital Signs/I&Os Vital Signs Date Time Temp Pulse Resp B/P (MAP) Pulse Ox O2 Delivery O2 Flow Rate FiO2 06/16/17 10:15 Room Air 06/16/17 06:00 96.2 70 14 132/80 (97) 91 06/15/17 08:00 2.0 I&O- Last 24 Hours up to 6 AM 06/16/17 06:00 Intake Total 360 ml Output Total 500 ml Balance -140 ml Laboratory Data Labs 24H Laboratory Tests 2 06/15/17 17:28: Immunoglobulin E 669.0H 06/16/17 05:29: Anion Gap 7L, Glomerular Filtration Rate > 60.0, Blood Urea Nitrogen 19H, Creatinine 0.75, Sodium Level 141, Potassium Level 4.3, Chloride Level 109H, Carbon Dioxide Level 25, Calcium Level 7.9L, Magnesium Level 2.7H CBC/BMP Laboratory Tests 06/16/17 05:29 Red Blood Count 4.33, Mean Corpuscular Volume 88.9, Mean Corpuscular Hemoglobin 29.6, Mean Corpuscular Hemoglobin Concent 33.3, Red Cell Distribution Width 14.1 , Calcium Level 7.9 L Microbiology Microbiology 06/14/17 Blood Culture - Preliminary, Resulted No growth after 24 hours . All specim... 06/14/17 Blood Culture - Preliminary, Resulted No Growth after 48 hours. All Specime... Discharge Medications Scheduled Budesonide (Budesonide) 0.5 Mg/2 Ml Neb, 0.5 MG INH BID, (Reported) Montelukast Sodium (Montelukast Sodium) 10 Mg Tab, 10 MG PO QHS Omalizumab (Xolair) 150 Mg Bjorn, 300 MG SC ASDIRECTED, (Reported) RECEIVES EVERY OTHER WEEK, LAST HAD END OF APRIL Omeprazole (Omeprazole) 40 Mg Cap, 40 MG PO QHS, (Reported) Prednisone (Prednisone) 10 Mg Tab, 10 MG PO ASDIRECTED Salmeterol/Fluticasone (Advair Hfa 230-21 Mcg/Act) 1 Aer Aer, 2 PUFF INH BID, ( Reported) Tiotropium [place] Monohydrate (Spiriva Handihaler) 18 Mcg Cap, 1 INHALATION INH DAILY Scheduled PRN Albuterol Sulfate (Ventolin Hfa) 200 Puff/8 Gm Aers, 2 PUFF INH Q4H PRN for SHORTNESS OF BREATH, (Reported) Albuterol/Ipratropium (Ipratropium [place]/Albut 0.5-2.5 (3) mg/3Ml) 1 Bjorn Bjorn, 1 BJORN INH Q4H PRN for SHORTNESS OF BREATH, (Reported) Calcium Carbonate (Tums) 500 Mg Chw, 500 MG PO for HEARTBURN, (Reported) Ibuprofen (Ibuprofen) 600 Mg Tab, 600 MG PO Q4H PRN for PAIN, (Reported) Allergies Coded Allergies: Sulfa Antibiotics (Unverified Allergy, Mild, rash, 06/06/17) ENVIROMENTAL (Unverified Allergy, Unknown, 12/16/16) TURKEY (Unverified Allergy, Unknown, 12/16/16) SHANDA LOERA MD Jun 16, 2017 15:18
[2017-06-22 00:06] LABS: AUREOBASIDIUM PULLULANS Negative (Negative); MICROPOLYSPORA FAENI AB Negative (Negative); PIGEON SERUM AB Negative (Negative); THERMOACTINOMYCES SACCHARI Negative (Negative); THERMOACTINOMYCES VULGARIS Negative (Negative)
== END 2017-06-16 14:34 | disposition home or self-care (01) | DRG 202 ==
LOC: M ED 13:32 → M ED INP 18:15 → M PCU 19:55 → M PED 06-15 11:25 → M MSPAV 06-15 11:34
PROVIDERS: ADMIT Internal Medicine; ATTEND Internal Medicine
DX: J45.41 Moderate persistent asthma with (acute) exacerbation (principal); E87.2 Acidosis; K21.9 Gastro-esophageal reflux disease without esophagitis; G43.909 Migraine, unspecified, not intractable, without status migrainosus; Z79.899 Other long term (current) drug therapy; Z88.2 Allergy status to sulfonamides; Z91.018 Allergy to other foods; Z91.048 Other nonmedicinal substance allergy status; Z98.41 Cataract extraction status, right eye; Z98.42 Cataract extraction status, left eye; Z83.3 Family history of diabetes mellitus; Z82.49 Family history of ischemic heart disease and other diseases of the circulatory system; Z90.49 Acquired absence of other specified parts of digestive tract; Z87.891 Personal history of nicotine dependence

== ENCOUNTER → 2020-08-29 | Outpatient (CLI) | payer SELFPAY ==
[~2020-08-29] MED LIST changes: -ACET1TAB17 PO; +ACET1TAB55 PO; +IBUP1TAB6 PO; +IPRA0.00 INH; -IPRA1SOL47 INH; +IPRA3AMP2 INH; -IPRASOL4 INH; -MONT10TA2 PO; +MONT10TA4 PO; -OMEP40CA2 PO; +OMEP40CA97 PO; +PRED-351 PO; -PRED10TA PO; +PRED10TA2 PO; +SPIR1CAP INH; -THEO1TAB4 PO; +THEO300T33 PO; +TUMS500C PO
== END ==
LOC: M LABSMTC 14:16
PROVIDERS: ATTEND Pediatrics
DX: Z20.828 Contact with and (suspected) exposure to other viral communicable diseases (principal)

== ENCOUNTER → 2020-09-11 | Outpatient (CLI) | payer SELFPAY | LOC: M LABSMTC 12:50 | PROVIDERS: ATTEND Pediatrics | DX: Z20.828 Contact with and (suspected) exposure to other viral communicable diseases (principal) ==

== ENCOUNTER → 2020-09-27 | Outpatient (CLI) | payer SELFPAY ==
[~2020-09-27] MED LIST changes: -MONT10TA4 PO; +MONT5TAB2 PO
== END ==
LOC: M LABSMTC 12:20
PROVIDERS: ATTEND Pediatrics
DX: Z20.828 Contact with and (suspected) exposure to other viral communicable diseases (principal)

== ENCOUNTER → 2020-10-31 | Outpatient (CLI) | payer SELFPAY | LOC: M LABSMTC 12:39 | PROVIDERS: ATTEND Pediatrics | DX: Z20.822 Contact with and (suspected) exposure to COVID-19 (principal) ==

== ENCOUNTER → 2020-12-06 | Outpatient (REF) ==
[~2020-12-06] MED LIST changes: +MONT10TA10 PO; -MONT5TAB2 PO
== END ==
LOC: M LABSMTC 11:26
PROVIDERS: ATTEND Pediatrics
DX: Z00.00 Encounter for general adult medical examination without abnormal findings (principal)

== ENCOUNTER 2021-01-06 18:48 | Emergency (ER) | payer OTHER, SELFPAY ==
[~2021-01-06] VITALS: Ht 165.1 cm; Wt 113.2 kg
[2021-01-06] MEDS ORDERED: IPRATROPIUM 0.02% SOLN 0.5MG 2.5ML NEB NEB ONE (19:40)
[2021-01-06 19:59] LABS: BASO # 0.1 10^3/uL (0.0-0.2); BASO % 0.4 % (0.0-1.0); EOS # 0.4 10^3/uL (0.0-0.5); EOS % 2.9 % (0.0-3.0); LYMPH # 2.1 10^3/uL (1.5-5.0); LYMPH % 14.4 % (24.0-44.0); MEAN CORPUSCULAR HEMOGLOBIN 30.3 pg (27.0-33.0); MEAN CORPUSCULAR HGB CONC 33.3 g/dl (32.0-36.5); MEAN CORPUSCULAR VOLUME 90.9 fl (80.0-96.0); MONO # 0.6 10^3/uL (0.0-0.8); MONO % 4.4 % (2.0-8.0); NEUTROPHILS # 11.1 10^3/uL (1.5-8.5); NEUTROPHILS % 77.1 % (36.0-66.0); PLATELET COUNT, AUTOMATED 367 10^3/uL (150-450); RED BLOOD COUNT 4.62 10^6/uL (4.00-5.40); WHITE BLOOD COUNT 14.4 10^3/uL (4.0-10.0)
[2021-01-06 20:02] LABS: INR 0.82; PARTIAL THROMBOPLASTIN TIME 31.2 SECONDS (24.2-38.5); PROTHROMBIN TIME 11.5 SECONDS (12.5-14.3)
[2021-01-06 20:08] LABS: D-DIMER QUANT < 270 ng/ml (<500)
--- NOTE | 2021-01-06 20:21 | REPVR ---
PROCEDURE INFORMATION: Exam: XR Chest Exam date and time: 01/06/2021 8:00 PM Age: 40 years old Clinical indication: Chest pain; Type not specified TECHNIQUE: Imaging protocol: XR of the chest Views: 1 view. COMPARISON: CR Chest, 2 view PA, Lat 12/11/2016 4:08 AM FINDINGS: Lungs: Unremarkable. No consolidation. Pleural spaces: Unremarkable. No pleural effusion. No pneumothorax. Heart/Mediastinum: Unremarkable. No cardiomegaly. Bones/joints: Unremarkable. IMPRESSION: No acute findings. Electronically signed by: Maikel Rizvi On 01/06/2021 20:21:08 PM
[2021-01-06 20:47] LABS: ALBUMIN 3.9 GM/DL (3.2-5.2); ALT/SGPT 26 U/L (12-78); BILIRUBIN,DIRECT < 0.1 MG/DL (0.0-0.2); BILIRUBIN,TOTAL 0.2 MG/DL (0.2-1.0); BLOOD UREA NITROGEN 10 MG/DL (7-18); CALCIUM LEVEL 8.6 MG/DL (8.5-10.1); CARBON DIOXIDE LEVEL 27 MEQ/L (21-32); CHLORIDE LEVEL 108 MEQ/L (98-107); CK-MB VALUE MASS < 1.0 NG/ML (<3.6); CPK CREATINE PHOSPHOKINASE 65 U/L (26-192); CREATININE FOR GFR 0.84 MG/DL (0.55-1.30); FREE T4 0.91 NG/DL (0.76-1.46); GLOMERULAR FILTRATION RATE > 60.0 (>58); GLUCOSE, FASTING 151 MG/DL (70-100); LIPASE 203 U/L (73-393); MB/CK RELATIVE INDEX 1.54 (< OR =4); NT-PRO BNP 37 PG/ML (<125); POTASSIUM SERUM 4.1 MEQ/L (3.5-5.1); SODIUM LEVEL 141 MEQ/L (136-145); TOTAL PROTEIN 6.9 GM/DL (6.4-8.2); TROPONIN I < 0.02 NG/ML (< 0.10)
[2021-01-06] MEDS ORDERED: ASPIRIN 325 MG TAB PO ONE (21:40)
[2021-01-06] MEDS ORDERED: FAMOTIDINE 20 MG TAB PO ONE (21:40)
[2021-01-06 22:50] LABS: CK-MB VALUE MASS < 1.0 NG/ML (<3.6); CPK CREATINE PHOSPHOKINASE 52 U/L (26-192); MB/CK RELATIVE INDEX 1.92 (< OR =4); TROPONIN I < 0.02 NG/ML (< 0.10)
[2021-01-06 23:15] VITALS: BP 120/65
--- NOTE | 2021-01-07 08:00 | ECGEPIP ---
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
== END 2021-01-06 23:15 | disposition home or self-care (01) ==
LOC: M ED 18:48
DX: R07.89 Other chest pain (principal); R06.02 Shortness of breath; J45.909 Unspecified asthma, uncomplicated; E78.5 Hyperlipidemia, unspecified

== ENCOUNTER → 2021-01-20 | Outpatient (REF) | LOC: M LABSMTC 11:32 | PROVIDERS: ATTEND Pediatrics | DX: Z11.52 Encounter for screening for COVID-19 (principal) ==

== ENCOUNTER → 2021-02-08 | Outpatient (REF) | LOC: M LABSMTC 11:22 | PROVIDERS: ATTEND Pediatrics | DX: Z20.822 Contact with and (suspected) exposure to COVID-19 (principal) ==

== ENCOUNTER → 2021-03-04 | Outpatient (REF) | LOC: M LABSMTC 09:41 | PROVIDERS: ATTEND Pediatrics | DX: Z20.828 Contact with and (suspected) exposure to other viral communicable diseases (principal) ==

== ENCOUNTER → 2021-06-09 | Outpatient (REF) ==
[~2021-06-09] MED LIST changes: +OMEP40CA4 PO; -OMEP40CA97 PO
== END ==
LOC: M EMP 11:16
PROVIDERS: ATTEND Family Medicine
DX: Z20.822 Contact with and (suspected) exposure to COVID-19 (principal)